=== PATIENT | male | born 1990 | race Caucasian/White ===

== ENCOUNTER 2018-08-27 17:25 | Inpatient (IN) | payer BC ==
[2018-08-27] MEDS ORDERED: Sodium Chloride 0.9% 10 ML Syringe FLUSH PRN (17:41)
[2018-08-27] MEDS ORDERED: Sodium Chloride 0.9% 1,000 ML IV SCH (17:45)
--- NOTE | 2018-08-27 18:33 | EDM.PDOC ---
ED HPI GENERAL MEDICAL PROBLEM - General Chief Complaint: Diabetic Complaint Stated Complaint: DIABETIC - SENT FROM [facility] Time Seen by Provider: 08/27/18 17:34 Source of Information: Reports: Patient, Family, Provider History Limitations: Reports: No Limitations - History of Present Illness INITIAL COMMENTS - FREE TEXT/NARRATIVE: The patient presents from the clinic in [place]. He has not been feeling well for a couple weeks. He had "flu like" symptoms such as nausea and he started vomiting a couple of days ago. He also had increased thirst and urination. He denies fever, chills, cough, congestion or runny nose. He was seen at the clinic and his blood sugar was elevated at 359 and his hemoglobin A1C is elevated at 13.5. He has no history of diabetes for him or his parents. He has never had trouble with his sugars before. He does have some aunts with diabetes. He has some abdominal cramping at times. Onset: Gradual Duration: Week(s): (2) Location: Reports: Abdomen Quality: Reports: Ache Severity: Mild Improves with: Reports: None Worsens with: Reports: None Associated Symptoms: Reports: Nausea/Vomiting. Denies: Chest Pain, Cough, Fever /Chills, Headaches, Shortness of Breath - Related Data Allergies Allergy/AdvReac Type Severity Reaction Status Date / Time No Known Allergies Allergy Verified 08/27/18 17:35 Past Medical History - Past Surgical History HEENT Surgical History: Reports: Adenoidectomy, Oral Surgery Social & Family History - Family History Family Medical History: Noncontributory - Tobacco Use Smoking Status *Q: Never Smoker - Caffeine Use Caffeine Use: Reports: Coffee, Soda - Recreational Drug Use Recreational Drug Use: No ED ROS GENERAL - Review of Systems Review Of Systems: See Below Constitutional: Reports: Malaise, Weakness HEENT: Reports: No Symptoms Respiratory: Reports: No Symptoms Cardiovascular: Reports: No Symptoms Endocrine: Reports: No Symptoms, High Glucose, Polydypsia GI/Abdominal: Reports: Abdominal Pain, Nausea, Vomiting. Denies: Diarrhea : Reports: No Symptoms Musculoskeletal: Reports: No Symptoms ED EXAM GENERAL NO PERIP PULSE - Physical Exam Exam: See Below Exam Limited By: No Limitations General Appearance: Alert, No Apparent Distress Ears: Normal External Exam Nose: Normal Inspection Head: Atraumatic, Normocephalic Neck: Normal Inspection, Supple, Non-Tender Respiratory/Chest: No Respiratory Distress, Lungs Clear, Normal Breath Sounds Cardiovascular: Regular Rate, Rhythm, No Edema, No Murmur GI/Abdominal: Soft, Non-Tender, No Organomegaly, No Mass Extremities: Normal Inspection Course - Vital Signs Last Recorded V/S: Last Vital Signs Temp 97.1 F 08/27/18 17:35 Pulse 108 H 08/27/18 17:35 Resp 24 H 08/27/18 17:35 BP 190/110 H 08/27/18 17:35 Pulse Ox 100 08/27/18 17:35 - Orders/Labs/Meds Orders: Active Orders 24 hr Category Date Time Status Cardiac Monitoring [RC] . DIRECTED Care 08/27/18 17:42 Active Peripheral IV Care [RC] . DIRECTED Care 08/27/18 17:42 Active Lactated Ringers [Ringers, Lactated] 1,000 ml Med 08/27/18 18:46 Active IV .BOLUS Lactated Ringers [Ringers, Lactated] 1,000 ml Med 08/27/18 19:03 Active IV .BOLUS Sodium Chloride 0.9% [Normal Saline] 1,000 ml Med 08/27/18 17:45 Active IV .BOLUS Sodium Chloride 0.9% [Saline Flush] Med 08/27/18 17:41 Active 10 ml FLUSH ASDIRECTED PRN Peripheral IV Insertion Adult [OM.PC] Stat Oth 08/27/18 17:41 Ordered Medication Orders Sodium Chloride (Normal Saline) 1,000 mls @ 1,000 mls/hr IV .BOLUS JOEL Last Admin: 08/27/18 17:51 Dose: 1,000 mls/hr Lactated Ringer's (Ringers, Lactated) 1,000 mls @ 1,000 mls/hr IV .BOLUS ONE Stop: 08/27/18 19:45 Last Admin: 08/27/18 18:55 Dose: 1,000 mls/hr Lactated Ringer's (Ringers, Lactated) 1,000 mls @ 1,000 mls/hr IV .BOLUS ONE Stop: 08/27/18 20:02 Sodium Chloride (Saline Flush) 10 ml FLUSH ASDIRECTED PRN PRN Reason: Keep Vein Open Last Admin: 08/27/18 17:40 Dose: 10 ml Labs: Laboratory Tests 08/27/18 08/27/18 08/27/18 Range/Units 17:40 17:40 17:40 WBC 13.15 H (4.23-9.07) K/mm3 RBC 5.35 (4.63-6.08) M/mm3 Hgb 15.7 (13.7-17.5) gm/L Hct 44.0 (40.1-51.0) % MCV 82.2 (79.0-92.2) fl MCH 29.3 (25.7-32.2) pg MCHC 35.7 H (32.2-35.5) g/dl RDW Std Deviation 38.9 (35.1-43.9) fL Plt Count 402 H (163-337) K/mm3 MPV 10.5 (9.4-12.3) fl Neut % (Auto) 77.3 H (34.0-67.9) % Lymph % (Auto) 16.5 L (21.8-53.1) % Carlisle % (Auto) 5.5 (5.3-12.2) % Eos % (Auto) 0.1 L (0.8-7.0) Baso % (Auto) 0.3 (0.1-1.2) % Neut # (Auto) 10.17 H (1.78-5.38) K/mm3 Lymph # (Auto) 2.17 (1.32-3.57) K/mm3 [place] # (Auto) 0.72 (0.30-0.82) K/mm3 Eos # (Auto) 0.01 L (0.04-0.54) K/mm3 Baso # (Auto) 0.04 (0.01-0.08) K/mm3 Puncture Site ABG pH (7.35-7.45) ABG pCO2 (35.0-45.0) mmHg ABG pO2 (80.0-100.0) mmHg ABG HCO3 (22.0-26.0) meq/L ABG O2 Saturation (96.0-97.0) % ABG Base Excess (-2-2.0) Terrance Test O2 Delivery Device FiO2 (21.00-100.00) % Sodium 129 L (136-145) mEq/L Potassium 3.6 (3.5-5.1) mEq/L Chloride 91 L (98-107) mEq/L Carbon Dioxide (21-32) mEq/L Anion Gap 33.6 H (5-15) BUN 20 H (7-18) mg/dL Creatinine 1.4 H (0.7-1.3) mg/dL Est Cr Clr Drug Dosing 76.00 mL/min Estimated GFR (MDRD) > 60 (>60) mL/min BUN/Creatinine Ratio 14.3 (14-18) Glucose 340 H (74-106) mg/dL POC Glucose (70-105) mg/dL Serum Osmolality 297 (280-300) mosm/kg Calcium 10.1 (8.5-10.1) mg/dL Total Bilirubin 0.6 (0.2-1.0) mg/dL AST 46 H (15-37) U/L ALT 92 H (16-63) U/L Alkaline Phosphatase 96 (46-116) U/L Total Protein 8.7 H (6.4-8.2) g/dl Albumin 4.5 (3.4-5.0) g/dl Globulin 4.2 gm/dL Albumin/Globulin Ratio 1.1 (1-2) Ketones 10.34 (0.0-0.3) mM 08/27/18 08/27/18 Range/Units 18:20 19:05 WBC (4.23-9.07) K/mm3 RBC (4.63-6.08) M/mm3 Hgb (13.7-17.5) gm/L Hct (40.1-51.0) % MCV (79.0-92.2) fl MCH (25.7-32.2) pg MCHC (32.2-35.5) g/dl RDW Std Deviation (35.1-43.9) fL Plt Count (163-337) K/mm3 MPV (9.4-12.3) fl Neut % (Auto) (34.0-67.9) % Lymph % (Auto) (21.8-53.1) % [place] % (Auto) (5.3-12.2) % Eos % (Auto) (0.8-7.0) Baso % (Auto) (0.1-1.2) % Neut # (Auto) (1.78-5.38) K/mm3 Lymph # (Auto) (1.32-3.57) K/mm3 [place] # (Auto) (0.30-0.82) K/mm3 Eos # (Auto) (0.04-0.54) K/mm3 Baso # (Auto) (0.01-0.08) K/mm3 Puncture Site Lt radial ABG pH 7.18 L* (7.35-7.45) ABG pCO2 14.3 L* (35.0-45.0) mmHg ABG pO2 103.0 H (80.0-100.0) mmHg ABG HCO3 5.1 L (22.0-26.0) meq/L ABG O2 Saturation 97.7 H (96.0-97.0) % ABG Base Excess -22.5 L (-2-2.0) Terrance Test Positive O2 Delivery Device Room air FiO2 0.00 L (21.00-100.00) % Sodium (136-145) mEq/L Potassium (3.5-5.1) mEq/L Chloride (98-107) mEq/L Carbon Dioxide (21-32) mEq/L Anion Gap (5-15) BUN (7-18) mg/dL Creatinine (0.7-1.3) mg/dL Est Cr Clr Drug Dosing mL/min Estimated GFR (MDRD) (>60) mL/min BUN/Creatinine Ratio (14-18) Glucose (74-106) mg/dL POC Glucose 333 H (70-105) mg/dL Serum Osmolality (280-300) mosm/kg Calcium (8.5-10.1) mg/dL Total Bilirubin (0.2-1.0) mg/dL AST (15-37) U/L ALT (16-63) U/L Alkaline Phosphatase (46-116) U/L Total Protein (6.4-8.2) g/dl Albumin (3.4-5.0) g/dl Globulin gm/dL Albumin/Globulin Ratio (1-2) Ketones (0.0-0.3) mM Meds: Medications Generic Name Dose Route Start Last Admin Trade Name Freq PRN Reason Stop Dose Admin Sodium Chloride 1,000 mls @ 1,000 mls/hr 08/27/18 17:45 08/27/18 17:51 Normal Saline IV 1,000 mls/hr .BOLUS JOEL Administration Lactated Ringer's 1,000 mls @ 1,000 mls/hr 08/27/18 18:46 08/27/18 18:55 Ringers, Lactated IV 08/27/18 19:45 1,000 mls/hr .BOLUS ONE Administration Lactated Ringer's 1,000 mls @ 1,000 mls/hr 08/27/18 19:03 Ringers, Lactated IV 08/27/18 20:02 .BOLUS ONE Sodium Chloride 10 ml 08/27/18 17:41 08/27/18 17:40 Saline Flush FLUSH 10 ml ASDIRECTED PRN Administration Keep Vein Open - Re-Assessments/Exams Free Text/Narrative Re-Assessment/Exam: 08/27/18 18:36 I ordered an IV NS 1L bolus, labs and a ABG to get pH. 08/27/18 19:15 His WBC was elevated at 13.15. His platelets were elevated at 402. His pH was low at 7.18. He has a low Na of 129. His anion gap is elevated at 33.6. His creatinine was elevated at 1.4. His GFR was normal at > 60. His AST was elevated at 46. Her ALT was elevated at 92. It appears he has new onset Type I diabetes. He is also in DKA. I have ordered another liter of fluid but I switched him to LR. I feel he needs to be admitted. I called Dr Mclean and he agreed to the admission. He wanted another liter of fluid before we start any insulin. Departure - Departure Time of Disposition: 19:30 Disposition: Admitted As Inpatient 66 Condition: Serious Clinical Impression: Hyperglycemia, New onset type 1 diabetes mellitus, uncontrolled Diabetic ketoacidosis Qualifiers: Diabetes mellitus type: type 1 Diabetes mellitus complication detail: without coma Qualified Code(s): E10.10 - Type 1 diabetes mellitus with ketoacidosis without coma - Discharge Information Referrals: Loni Austin [employer] [Primary Care Provider] - Forms: ED Department Discharge - My Orders Last 24 Hours: My Active Orders 08/27/18 17:41 Sodium Chloride 0.9% [Saline Flush] 10 ml FLUSH ASDIRECTED PRN Peripheral IV Insertion Adult [OM.PC] Stat 08/27/18 17:42 Cardiac Monitoring [RC] . DIRECTED Peripheral IV Care [RC] . DIRECTED 08/27/18 17:45 Sodium Chloride 0.9% [Normal Saline] 1,000 ml IV .BOLUS 08/27/18 18:46 Lactated Ringers [Ringers, Lactated] 1,000 ml IV .BOLUS 08/27/18 19:03 Lactated Ringers [Ringers, Lactated] 1,000 ml IV .BOLUS - Assessment/Plan Last 24 Hours: My Active Orders 08/27/18 17:41 Sodium Chloride 0.9% [Saline Flush] 10 ml FLUSH ASDIRECTED PRN Peripheral IV Insertion Adult [OM.PC] Stat 08/27/18 17:42 Cardiac Monitoring [RC] . DIRECTED Peripheral IV Care [RC] . DIRECTED 08/27/18 17:45 Sodium Chloride 0.9% [Normal Saline] 1,000 ml IV .BOLUS 08/27/18 18:46 Lactated Ringers [Ringers, Lactated] 1,000 ml IV .BOLUS 08/27/18 19:03 Lactated Ringers [Ringers, Lactated] 1,000 ml IV .BOLUS
[2018-08-27] MEDS ORDERED: Lactated Ringers 1,000 ML IV ONE ×3 (18:46→21:54)
[2018-08-27] MEDS ORDERED: LORazepam 2 MG/ML SDV IV PRN (21:38)
[2018-08-27] MEDS ORDERED: Albuterol/Ipratropium 3.0-0.5 MG/3 ML Neb Soln NEB PRN (21:38)
[2018-08-27] MEDS ORDERED: Docusate Sodium 100 MG Cap PO PRN (21:38)
[2018-08-27] MEDS ORDERED: Acetaminophen 325 MG Tab PO PRN (21:38)
[2018-08-27] MEDS ORDERED: Temazepam 15 MG Cap PO PRN (21:38)
[2018-08-27] MEDS ORDERED: Acetaminophen/HYDROcodone 325-5 MG Tab PO PRN (21:38)
[2018-08-27] MEDS ORDERED: LORazepam 2 MG/ML SDV IVPUSH PRN (21:38)
[2018-08-27] MEDS ORDERED: Metoprolol Tartrate 5 MG/5 ML SDV IVPUSH PRN (21:38)
[2018-08-27] MEDS ORDERED: HYDROmorphone 1 MG/ML Syringe IVPUSH PRN (21:38)
[2018-08-27] MEDS ORDERED: Promethazine 6.25 MG in Sodium Chloride 0.9% 50 ML IV PRN (21:38)
[2018-08-27] MEDS ORDERED: Bisacodyl 5 MG Tab PO PRN (21:38)
[2018-08-27] MEDS ORDERED: Polyethylene Glycol 3350 Powder 17 GM Packet PO PRN (21:38)
[2018-08-27] MEDS ORDERED: Ondansetron 4 MG/2 ML SDV IV PRN (21:38)
[2018-08-27] MEDS ORDERED: Potassium Chloride 20 MEQ Tab.ER PO ONE (21:46)
[2018-08-27] MEDS: Potassium Chloride 20 MEQ Tab.ER PO SCH (22:10)
--- NOTE | 2018-08-27 22:11 | PCM.HP ---
H&P History of Present Illness - General Date of Service: 08/27/18 Admit Problem/Dx: Admission Diagnosis/Problem Admission Diagnosis/Problem Diabetic ketoacidosis Source of Information: Patient, Family, Provider, RN Notes Reviewed History Limitations: Reports: No Limitations - History of Present Illness Initial Comments - Free Text/Narative: This is a 28 yo young white male with no significant past medical hx/o who was initially seen in [facility] [place] "flu-like" symptoms that have been going on for a couple of weeks now. Her c/o is associated with increased fluid intake, urination, abdominal pain, nausea and vomiting. She was subsequently diagnosed with new onset of diabetes with a BS of 359 and an A1C level of 13.5. His initial work up in ED shows a CBC remarkable for WBC of 13.15, MCHC of 35.7 , Platelet of 402, Neutrophils of 77.3%, Lymphocytes of 16.5% and Eosinophils of 0.1%. His ABG shows a pH of 7.18, pCO2 of 14.3, PO2 of 103, HCO3 of 5.1, O2 Sat of 97.7, on RA. His chemistry is significant for Na of 129, Cl of 91, AG of 33.6, BUN of 20, Cr of 1.4, BS of 340, AST of 46, ALT of 92 and Total Protein of 8.7. His ketones level is 10.34. Patient is being admitted for medical treatment of DKA. - Related Data Allergies/Adverse Reactions: Allergies Allergy/AdvReac Type Severity Reaction Status Date / Time No Known Allergies Allergy Verified 08/27/18 17:35 Home Medications: Home Meds Cholecalciferol (Vitamin D3) [Vitamin D3] 5,000 unit PO BEDTIME #30 tablet 08/29 [Rx] Insulin Glarg,Human.Rec.Analog [Lantus] 25 unit SQ BID #1 unit 08/29/18 [Rx] Insulin Lispro [Humalog] See Protocol SUBCUT QIDACANDBED PRN #1 ml 08/29/18 [Rx] Lisinopril 10 mg PO DAILY #30 tablet 08/29/18 [Rx] Past Medical History - Past Surgical History HEENT Surgical History: Reports: Adenoidectomy, Oral Surgery Social & Family History - Family History Family Medical History: Noncontributory - Tobacco Use Smoking Status *Q: Never Smoker - Caffeine Use Caffeine Use: Reports: Coffee, Soda - Recreational Drug Use Recreational Drug Use: No H&P Review of Systems - Review of Systems: Review Of Systems: See Below General: Reports: Malaise, Weakness, Fatigue, Other (increased thirst). Denies : Fever, Chills HEENT: Reports: No Symptoms Pulmonary: Denies: Shortness of Breath Cardiovascular: Denies: Chest Pain, Dyspnea on Exertion, Edema, Lightheadedness Gastrointestinal: Reports: Abdominal Pain, Nausea Genitourinary: Reports: Frequency Musculoskeletal: Reports: No Symptoms Skin: Denies: Jaundice, Pallor, Rash, Erythema Psychiatric: Denies: Depression, Anxiety, Agitation, Hallucinations, Suicidal Ideation Neurological: Denies: Confusion, Dizziness, Headache, Seizure, Syncope, Tremors , Difficulty Walking, Weakness, Gait Disturbance Hematologic/Lymphatic: Reports: No Symptoms Immunologic: Reports: No Symptoms Exam - Exam Exam: See Below - Vital Signs Vital Signs: Last Vital Signs Temp 37.6 C 08/27/18 20:22 Pulse 90 08/27/18 20:22 Resp 16 08/27/18 20:22 BP 165/87 H 08/27/18 20:22 Pulse Ox 99 08/27/18 20:22 Weight: 98.475 kg - Exam General: Alert, Oriented, Cooperative, Other (Obese) HEENT: Conjunctiva Clear, EACs Clear, EOMI, Hearing Intact, Mucosa Moist & [place] , Nares Patent, Normal Nasal Septum, Posterior Pharynx Clear, Pupils Equal, Pupils Reactive Neck: Supple, Trachea Midline Lungs: Clear to Auscultation, Normal Respiratory Effort Cardiovascular: Regular Rhythm, Tachycardia GI/Abdominal Exam: Normal Bowel Sounds, Soft, Non-Tender, No Organomegaly, No Distention, No Abnormal Bruit, No Mass (Male) Exam: Deferred Rectal (Males) Exam: Deferred Back Exam: Normal Inspection, Full Range of Motion Extremities: Normal Inspection, Normal Range of Motion, Non-Tender, No Pedal Edema, Normal Capillary Refill Peripheral Pulses: 3+: Posterior Tibial (L), Posterior Tibial (R), Dorsalis Pedis (L), Dorsalis Pedis (R) Skin: Warm, Intact Neuro Extensive - Mental Status: Oriented x3, Normal Cognition, Memory Intact Neuro Extensive - Motor, Sensory, Reflexes: CN II-XII Intact, Normal Gait Psychiatric: Alert, Normal Affect, Normal Mood - Patient Data Lab Results Last 24 hrs: Laboratory Results - last 24 hr 08/27/18 08/27/18 08/27/18 Range/Units 17:40 17:40 17:40 WBC 13.15 H (4.23-9.07) K/mm3 RBC 5.35 (4.63-6.08) M/mm3 Hgb 15.7 (13.7-17.5) gm/L Hct 44.0 (40.1-51.0) % MCV 82.2 (79.0-92.2) fl MCH 29.3 (25.7-32.2) pg MCHC 35.7 H (32.2-35.5) g/dl RDW Std Deviation 38.9 (35.1-43.9) fL Plt Count 402 H (163-337) K/mm3 MPV 10.5 (9.4-12.3) fl Neut % (Auto) 77.3 H (34.0-67.9) % Lymph % (Auto) 16.5 L (21.8-53.1) % [place] % (Auto) 5.5 (5.3-12.2) % Eos % (Auto) 0.1 L (0.8-7.0) Baso % (Auto) 0.3 (0.1-1.2) % Neut # (Auto) 10.17 H (1.78-5.38) K/mm3 Lymph # (Auto) 2.17 (1.32-3.57) K/mm3 [place] # (Auto) 0.72 (0.30-0.82) K/mm3 Eos # (Auto) 0.01 L (0.04-0.54) K/mm3 Baso # (Auto) 0.04 (0.01-0.08) K/mm3 Puncture Site ABG pH (7.35-7.45) ABG pCO2 (35.0-45.0) mmHg ABG pO2 (80.0-100.0) mmHg ABG HCO3 (22.0-26.0) meq/L ABG O2 Saturation (96.0-97.0) % ABG Base Excess (-2-2.0) Terrance Test O2 Delivery Device FiO2 (21.00-100.00) % Sodium 129 L (136-145) mEq/L Potassium 3.6 (3.5-5.1) mEq/L Chloride 91 L (98-107) mEq/L Carbon Dioxide (21-32) mEq/L Anion Gap 33.6 H (5-15) BUN 20 H (7-18) mg/dL Creatinine 1.4 H (0.7-1.3) mg/dL Est Cr Clr Drug Dosing 76.00 mL/min Estimated GFR (MDRD) > 60 (>60) mL/min BUN/Creatinine Ratio 14.3 (14-18) Glucose 340 H (74-106) mg/dL POC Glucose (70-105) mg/dL Serum Osmolality 297 (280-300) mosm/kg Calcium 10.1 (8.5-10.1) mg/dL Total Bilirubin 0.6 (0.2-1.0) mg/dL AST 46 H (15-37) U/L ALT 92 H (16-63) U/L Alkaline Phosphatase 96 (46-116) U/L Total Protein 8.7 H (6.4-8.2) g/dl Albumin 4.5 (3.4-5.0) g/dl Globulin 4.2 gm/dL Albumin/Globulin Ratio 1.1 (1-2) Ketones 10.34 (0.0-0.3) mM 08/27/18 08/27/18 08/27/18 Range/Units 18:20 19:05 20:02 WBC (4.23-9.07) K/mm3 RBC (4.63-6.08) M/mm3 Hgb (13.7-17.5) gm/L Hct (40.1-51.0) % MCV (79.0-92.2) fl MCH (25.7-32.2) pg MCHC (32.2-35.5) g/dl RDW Std Deviation (35.1-43.9) fL Plt Count (163-337) K/mm3 MPV (9.4-12.3) fl Neut % (Auto) (34.0-67.9) % Lymph % (Auto) (21.8-53.1) % [place] % (Auto) (5.3-12.2) % Eos % (Auto) (0.8-7.0) Baso % (Auto) (0.1-1.2) % Neut # (Auto) (1.78-5.38) K/mm3 Lymph # (Auto) (1.32-3.57) K/mm3 [place] # (Auto) (0.30-0.82) K/mm3 Eos # (Auto) (0.04-0.54) K/mm3 Baso # (Auto) (0.01-0.08) K/mm3 Puncture Site Lt radial ABG pH 7.18 L* (7.35-7.45) ABG pCO2 14.3 L* (35.0-45.0) mmHg ABG pO2 103.0 H (80.0-100.0) mmHg ABG HCO3 5.1 L (22.0-26.0) meq/L ABG O2 Saturation 97.7 H (96.0-97.0) % ABG Base Excess -22.5 L (-2-2.0) Terrance Test Positive O2 Delivery Device Room air FiO2 0.00 L (21.00-100.00) % Sodium (136-145) mEq/L Potassium (3.5-5.1) mEq/L Chloride (98-107) mEq/L Carbon Dioxide (21-32) mEq/L Anion Gap (5-15) BUN (7-18) mg/dL Creatinine (0.7-1.3) mg/dL Est Cr Clr Drug Dosing mL/min Estimated GFR (MDRD) (>60) mL/min BUN/Creatinine Ratio (14-18) Glucose (74-106) mg/dL POC Glucose 333 H 323 H (70-105) mg/dL Serum Osmolality (280-300) mosm/kg Calcium (8.5-10.1) mg/dL Total Bilirubin (0.2-1.0) mg/dL AST (15-37) U/L ALT (16-63) U/L Alkaline Phosphatase (46-116) U/L Total Protein (6.4-8.2) g/dl Albumin (3.4-5.0) g/dl Globulin gm/dL Albumin/Globulin Ratio (1-2) Ketones (0.0-0.3) mM 08/27/18 Range/Units 21:50 WBC (4.23-9.07) K/mm3 RBC (4.63-6.08) M/mm3 Hgb (13.7-17.5) gm/L Hct (40.1-51.0) % MCV (79.0-92.2) fl MCH (25.7-32.2) pg MCHC (32.2-35.5) g/dl RDW Std Deviation (35.1-43.9) fL Plt Count (163-337) K/mm3 MPV (9.4-12.3) fl Neut % (Auto) (34.0-67.9) % Lymph % (Auto) (21.8-53.1) % [place] % (Auto) (5.3-12.2) % Eos % (Auto) (0.8-7.0) Baso % (Auto) (0.1-1.2) % Neut # (Auto) (1.78-5.38) K/mm3 Lymph # (Auto) (1.32-3.57) K/mm3 [place] # (Auto) (0.30-0.82) K/mm3 Eos # (Auto) (0.04-0.54) K/mm3 Baso # (Auto) (0.01-0.08) K/mm3 Puncture Site ABG pH (7.35-7.45) ABG pCO2 (35.0-45.0) mmHg ABG pO2 (80.0-100.0) mmHg ABG HCO3 (22.0-26.0) meq/L ABG O2 Saturation (96.0-97.0) % ABG Base Excess (-2-2.0) Terrance Test O2 Delivery Device FiO2 (21.00-100.00) % Sodium (136-145) mEq/L Potassium (3.5-5.1) mEq/L Chloride (98-107) mEq/L Carbon Dioxide (21-32) mEq/L Anion Gap (5-15) BUN (7-18) mg/dL Creatinine (0.7-1.3) mg/dL Est Cr Clr Drug Dosing mL/min Estimated GFR (MDRD) (>60) mL/min BUN/Creatinine Ratio (14-18) Glucose (74-106) mg/dL POC Glucose 276 H (70-105) mg/dL Serum Osmolality (280-300) mosm/kg Calcium (8.5-10.1) mg/dL Total Bilirubin (0.2-1.0) mg/dL AST (15-37) U/L ALT (16-63) U/L Alkaline Phosphatase (46-116) U/L Total Protein (6.4-8.2) g/dl Albumin (3.4-5.0) g/dl Globulin gm/dL Albumin/Globulin Ratio (1-2) Ketones (0.0-0.3) mM Result Diagrams: 08/27/18 17:40 08/29/18 08:00 Problem List Initiated/Reviewed/Updated: Yes Orders Last 24hrs: Active Orders 24 hr Category Date Time Status Patient Status [ADT] Routine ADT 08/27/18 19:49 Active Antiembolic Devices [RC] QSHIFT Care 08/27/18 21:40 Active Cardiac Monitoring [RC] CONTINUOUS Care 08/27/18 21:39 Active Height and Weight [RC] DAILY Care 08/27/18 21:38 Active Intake and Output [RC] 04,16 Care 08/27/18 21:39 Active Oxygen Therapy [RC] PRN Care 08/27/18 21:38 Active Peripheral IV Care [RC] Q2HR Care 08/27/18 17:42 Active RT Aerosol Therapy [RC] ASDIRECTED Care 08/27/18 21:42 Active Up ad Lili [RC] ASDIRECTED Care 08/27/18 21:38 Active VTE/DVT Education [RC] 09,21 Care 08/27/18 21:38 Active Vital Signs [RC] Q4HR Care 08/27/18 21:38 Active Consult to Case Management/Geotechnical Operating Engineer [CONS] Cons 08/27/18 21:38 Active Routine Consult to Diabetic Nurse Specialist [CONS] Routine Cons 08/27/18 21:38 Active Consult to Assistant Director Of Nursing [CONS] Routine Cons 08/27/18 21:38 Active Consistent Carbohydrate Diet [DIET] Diet 08/27/18 Breakfast Active Nothing per Oral Now Diet [DIET] Diet 08/27/18 Dinner Active A1C [GLYCOSYLATED HEMOGLOBIN,HGBA1C] [CHEM] AM Lab 08/28/18 05:11 Ordered BASIC METABOLIC PANEL,BMP [CHEM] Q4H Lab 08/27/18 21:42 Ordered BASIC METABOLIC PANEL,BMP [CHEM] Q4H Lab 08/28/18 01:42 Ordered BASIC METABOLIC PANEL,BMP [CHEM] Q4H Lab 08/28/18 05:42 Ordered BASIC METABOLIC PANEL,BMP [CHEM] Q4H Lab 08/28/18 09:42 Ordered BASIC METABOLIC PANEL,BMP [CHEM] Q4H Lab 08/28/18 13:42 Ordered BASIC METABOLIC PANEL,BMP [CHEM] Q4H Lab 08/28/18 17:42 Ordered LIPID PANEL [CHEM] AM Lab 08/28/18 05:11 Ordered MAGNESIUM [CHEM] AM Lab 08/28/18 05:11 Ordered MAGNESIUM [CHEM] AM Lab 08/29/18 05:11 Ordered MAGNESIUM [CHEM] AM Lab 08/30/18 05:11 Ordered MAGNESIUM [CHEM] AM Lab 08/31/18 05:11 Ordered MAGNESIUM [CHEM] AM Lab 09/01/18 05:11 Ordered MICROALBUMIN/CREAT RATIO,URINE [URCHEM] Routine Lab 08/27/18 22:10 Ordered T4 FREE [CHEM] AM Lab 08/28/18 05:11 Ordered TSH [CHEM] AM Lab 08/28/18 05:11 Ordered Acetaminophen [Tylenol] Med 08/27/18 21:38 Ordered 650 mg PO Q4H PRN Acetaminophen/HYDROcodone [[place] 325-5 MG] Med 08/27/18 21:38 Ordered 1 tab PO Q4H PRN Albuterol/Ipratropium [DuoNeb 3.0-0.5 MG/3 ML] Med 08/27/18 21:38 Ordered 3 ml NEB Q4H PRN Bisacodyl [Dulcolax] Med 08/27/18 21:38 Ordered 5 mg PO DAILY PRN Docusate Sodium [Colace] Med 08/27/18 21:38 Ordered 100 mg PO BID PRN Docusate Sodium/Sennosides [Senna Plus] Med 08/27/18 21:38 Ordered 1 tab PO BID PRN HYDROmorphone [Dilaudid] Med 08/27/18 21:38 Ordered 0.25 mg IVPUSH Q2H PRN Insulin Regular, Human [HumuLIN R] 100 unit Med 08/27/18 21:45 Ordered Sodium Chloride 0.9% [Normal Saline] 99 ml IV TITRATE LORazepam [Ativan] Med 08/27/18 21:38 Ordered 1 mg IV Q6H PRN LORazepam [Ativan] Med 08/27/18 21:38 Active 2 mg IVPUSH Q4H PRN Lactated Ringers [Ringers, Lactated] 1,000 ml Med 08/27/18 21:54 Active IV BOLUS Metoprolol Tartrate [Lopressor] Med 08/27/18 21:38 Active 5 mg IVPUSH Q4H PRN Ondansetron [Zofran] Med 08/27/18 21:38 Ordered 4 mg IV Q6H PRN Pharmacy to Dose - Magnesium R [Pharmacy to Dose - Med 08/27/18 21:45 Pending Magnesium Replacement] 1 dose .XX ASDIRECTED Pharmacy to Dose - Potassium R [Pharmacy to Dose - Med 08/27/18 21:45 Pending Potassium Replacement] 1 dose .XX ASDIRECTED Polyethylene Glycol 3350 [MiraLAX] Med 08/27/18 21:38 Ordered 17 gm PO DAILY PRN Potassium Chloride [Klor-Con M20] Med 08/27/18 21:45 Active 40 meq PO Q4H Promethazine [Phenergan] 6.25 mg Med 08/27/18 21:38 Ordered Sodium Chloride 0.9% [Normal Saline] 50 ml IV Q6H Sodium Chloride 0.9% [Normal Saline] 1,000 ml Med 08/27/18 17:45 Active IV .BOLUS Sodium Chloride 0.9% [Saline Flush] Med 08/27/18 17:41 Active 10 ml FLUSH ASDIRECTED PRN Temazepam [Restoril] Med 08/27/18 21:38 Ordered 15 mg PO BEDTIME PRN hydrALAZINE [Apresoline] Med 08/27/18 21:38 Active 20 mg IVPUSH Q4H PRN Peripheral IV Insertion Adult [OM.PC] Stat Oth 08/27/18 17:41 Ordered Sequential Compression Device [OM.PC] Per Unit Routine Oth 08/27/18 21:39 Ordered Resuscitation Status Routine Resus Stat 08/27/18 21:38 Ordered Medication Orders Acetaminophen (Tylenol) 650 mg PO Q4H PRN PRN Reason: Pain (Mild 1-3)/fever Hydrocodone Bitart/Acetaminophen ([place] 325-5 Mg) 1 tab PO Q4H PRN PRN Reason: Pain (moderate 4-6) Albuterol/Ipratropium (Duoneb 3.0-0.5 Mg/3 Ml) 3 ml NEB Q4H PRN PRN Reason: Shortness Of Breath/wheezing Bisacodyl (Dulcolax) 5 mg PO DAILY PRN PRN Reason: Constipation Docusate Sodium (Colace) 100 mg PO BID PRN PRN Reason: Constipation Hydralazine HCl (Apresoline) 20 mg IVPUSH Q4H PRN PRN Reason: Hypertension Hydromorphone HCl (Dilaudid) 0.25 mg IVPUSH Q2H PRN PRN Reason: Pain (severe 7-10) Sodium Chloride (Normal Saline) 1,000 mls @ 1,000 mls/hr IV .BOLUS JOEL Last Admin: 08/27/18 17:51 Dose: 1,000 mls/hr Promethazine HCl 6.25 mg/ (Sodium Chloride) 50.25 mls @ 100 mls/hr IV Q6H PRN PRN Reason: Nausea/Vomiting Insulin Human Regular 100 unit (/ Sodium Chloride) 100 mls @ 787.8 mls/hr IV TITRATE JOEL; Protocol Lactated Ringer's (Ringers, Lactated) 1,000 mls @ 999 mls/hr IV BOLUS ONE Stop: 08/27/18 22:54 Lorazepam (Ativan) 2 mg IVPUSH Q4H PRN PRN Reason: Seizures Lorazepam (Ativan) 1 mg IV Q6H PRN PRN Reason: Anxiety Magnesium Sulfate (Pharmacy To Dose - Magnesium Replacement) 1 dose .XX ASDIRECTED [facility] Metoprolol Tartrate (Lopressor) 5 mg IVPUSH Q4H PRN PRN Reason: Tachycardia Ondansetron HCl (Zofran) 4 mg IV Q6H PRN PRN Reason: Nausea/Vomiting Polyethylene Glycol (Miralax) 17 gm PO DAILY PRN PRN Reason: Constipation Potassium Chloride (Pharmacy To Dose - Potassium Replacement) 1 dose .XX ASDIRECTED [facility] Potassium Chloride (Klor-Con M20) 40 meq PO Q4H JOEL Stop: 08/28/18 01:46 Senna/Docusate Sodium (Senna Plus) 1 tab PO BID PRN PRN Reason: Constipation Sodium Chloride (Saline Flush) 10 ml FLUSH ASDIRECTED PRN PRN Reason: Keep Vein Open Last Admin: 08/27/18 17:40 Dose: 10 ml Temazepam (Restoril) 15 mg PO BEDTIME PRN PRN Reason: Sleep Assessment/Plan Comment:: Assessment/Plan: Acute: Diabetic Ketoacidosis - Ketones 10.34 and BS in the 300s - He carries no hx/o diabetes - Reports polydipsia and polyuria - DKA Protocol (my own) w/ Aggressive IV hydration (so for he had gotten 1L NS and just completed 2L of LR) - Continue LR for volume resuscitation - NPO until AG resolves - Diabetic Education and Dietary Consult New Onset of Diabetes - 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 - Obese and now in his late 20s - Likely need to confirm with: GADA, ICA, ZnT8 and IA-2 - BS in the 300s; A1C ordered - Parents non diabetic but aunties on mother's side - Insulin regimen (LA and SA) Class I Obese - BMI 33 - Advised LSM - Dietary consult for weight management Plan: Admit to ICU Insulin drip once he achieve adequate volume resuscitation Serial BMP Q4H until AG resolves Routine AM labs Monitor E-lytes Abnormality A1C, Thyroid Panel, Vit D level, Lipid Panel and Urine Microalbumin in am SW/CM for d/c planning Additional orders as above Code status:1 With patient's permission, met up with parents at bedside and updated them about his diagnosis, lab results and treatment plan.
[2018-08-27] MEDS ORDERED: Insulin Regular, Human 100 Units/ML 3 ML Vial IV SCH ×3 (23:00→23:15)
[2018-08-28] MEDS ORDERED: Dextrose 5% in Water 1,000 ML IV SCH (00:30)
[2018-08-28] MEDS: hydrALAZINE 20 MG/ML SDV IVPUSH PRN ×2 (00:40→06:43)
[2018-08-28] MEDS: Dextrose 5%-0.9% NaCl 1,000 ML IV SCH ×4 (00:40→20:47)
[2018-08-28] MEDS: Potassium Chloride 20 MEQ Tab.ER PO SCH (00:46)
[2018-08-28 08:28] LABS: HEMOGLOBIN A1C 11.3 % (4.50-6.20)
[2018-08-28] MEDS ORDERED: Lisinopril 5 MG Tab PO ONE (09:28)
[2018-08-28] MEDS ORDERED: Magnesium Sulfate/Water 2 GM in Premix Bag 1 BAG IV ONE (10:00)
[2018-08-28] MEDS ORDERED: Potassium Chloride 20 MEQ Tab.ER PO ONE ×3 (10:00→22:01)
[2018-08-28] MEDS: Cholecalciferol (Vitamin D3) 5,000 UNIT Tab PO SCH (20:11)
--- NOTE | 2018-08-28 22:02 | PCM.PN ---
- General Info Date of Service: 08/28/18 Admission Dx/Problem (Free Text): Admission Diagnosis/Problem Admission Diagnosis/Problem Diabetic ketoacidosis Subjective Update: Follow Up Functional Status: Reports: Pain Controlled, Ambulating, Urinating. Denies: New Symptoms - Review of Systems General: Denies: Fever, Weakness, Fatigue, Malaise, Chills HEENT: Reports: No Symptoms Pulmonary: Denies: Shortness of Breath Cardiovascular: Denies: Chest Pain, Dyspnea on Exertion, Edema, Lightheadedness Gastrointestinal: Denies: Abdominal Pain, Constipation, Decreased Appetite, Diarrhea, Nausea, Vomiting Genitourinary: Reports: No Symptoms Musculoskeletal: Reports: No Symptoms Skin: Reports: No Symptoms Neurological: Denies: Confusion, Weakness, Gait Disturbance Psychiatric: Denies: Depression, Anxiety, Agitation Systems Review Comment:: No overnight or acute issues. He rested well. So far his AG is now at 28. He has no complaints. - Patient Data Vitals - Most Recent: Last Vital Signs Temp 36.6 C 08/28/18 20:00 Pulse 85 08/28/18 15:59 Resp 18 08/28/18 20:00 BP 125/69 08/28/18 20:00 Pulse Ox 99 08/28/18 20:00 Weight - Most Recent: 98.475 kg I&O - Last 24 Hours: Intake & Output 08/28/18 08/28/18 08/28/18 06:59 14:59 22:59 Intake Total 1417 2024 Output Total 1000 650 300 Balance 417 -650 1724 Lab Results Last 24 Hours: Laboratory Results - last 24 hr 08/27/18 08/28/18 08/28/18 Range/Units 22:27 00:18 00:27 Sodium 133 L (136-145) mEq/L Potassium 3.1 L (3.5-5.1) mEq/L Chloride 98 (98-107) mEq/L Carbon Dioxide 10 L (21-32) mEq/L Anion Gap 28.1 H (5-15) BUN 17 (7-18) mg/dL Creatinine 1.3 (0.7-1.3) mg/dL Est Cr Clr Drug Dosing 81.85 mL/min Estimated GFR (MDRD) > 60 (>60) mL/min BUN/Creatinine Ratio 13.1 L (14-18) Glucose 255 H (74-106) mg/dL POC Glucose 250 H (70-105) mg/dL Hemoglobin A1c (4.50-6.20) % Calcium 8.8 (8.5-10.1) mg/dL Magnesium (1.8-2.4) mg/dl Triglycerides (<150) mg/dL Cholesterol (<200) mg/dL LDL Cholesterol Direct (<100) mg/dL HDL Cholesterol (40-59) mg/dL Vitamin D 25-Hydroxy (30.0-100.0) ng/ml Free T4 (0.76-1.46) ng/dL TSH 3rd Generation (0.358-3.74) uIU/mL Ur Random Creatinine 28.5 L (30.0-125.0) mg/dL Ur Random Microalbumin 313.7 H (1.3-20.0) mg/L Microalb/Creat Ratio 1100.7 H (0-30) mg/g 08/28/18 08/28/18 08/28/18 Range/Units 01:20 01:28 02:33 Sodium 134 L (136-145) mEq/L Potassium 2.9 L (3.5-5.1) mEq/L Chloride 99 (98-107) mEq/L Carbon Dioxide 9 L (21-32) mEq/L Anion Gap 28.9 H (5-15) BUN 17 (7-18) mg/dL Creatinine 1.3 (0.7-1.3) mg/dL Est Cr Clr Drug Dosing 81.85 mL/min Estimated GFR (MDRD) > 60 (>60) mL/min BUN/Creatinine Ratio 13.1 L (14-18) Glucose 212 H (74-106) mg/dL POC Glucose 227 H 237 H (70-105) mg/dL Hemoglobin A1c (4.50-6.20) % Calcium 9.3 (8.5-10.1) mg/dL Magnesium (1.8-2.4) mg/dl Triglycerides (<150) mg/dL Cholesterol (<200) mg/dL LDL Cholesterol Direct (<100) mg/dL HDL Cholesterol (40-59) mg/dL Vitamin D 25-Hydroxy (30.0-100.0) ng/ml Free T4 (0.76-1.46) ng/dL TSH 3rd Generation (0.358-3.74) uIU/mL Ur Random Creatinine (30.0-125.0) mg/dL Ur Random Microalbumin (1.3-20.0) mg/L Microalb/Creat Ratio (0-30) mg/g 08/28/18 08/28/18 08/28/18 Range/Units 03:37 04:45 05:43 Sodium (136-145) mEq/L Potassium (3.5-5.1) mEq/L Chloride (98-107) mEq/L Carbon Dioxide (21-32) mEq/L Anion Gap (5-15) BUN (7-18) mg/dL Creatinine (0.7-1.3) mg/dL Est Cr Clr Drug Dosing mL/min Estimated GFR (MDRD) (>60) mL/min BUN/Creatinine Ratio (14-18) Glucose (74-106) mg/dL POC Glucose 277 H 272 H (70-105) mg/dL Hemoglobin A1c (4.50-6.20) % Calcium (8.5-10.1) mg/dL Magnesium 1.6 L (1.8-2.4) mg/dl Triglycerides 114 (<150) mg/dL Cholesterol 135 (<200) mg/dL LDL Cholesterol Direct 92 (<100) mg/dL HDL Cholesterol 32.0 L (40-59) mg/dL Vitamin D 25-Hydroxy 18.0 L (30.0-100.0) ng/ml Free T4 0.92 (0.76-1.46) ng/dL TSH 3rd Generation 1.988 (0.358-3.74) uIU/mL Ur Random Creatinine (30.0-125.0) mg/dL Ur Random Microalbumin (1.3-20.0) mg/L Microalb/Creat Ratio (0-30) mg/g 08/28/18 08/28/18 08/28/18 Range/Units 05:43 05:43 05:50 Sodium 134 L (136-145) mEq/L Potassium 3.2 L (3.5-5.1) mEq/L Chloride 101 (98-107) mEq/L Carbon Dioxide 9 L (21-32) mEq/L Anion Gap 27.2 H (5-15) BUN 17 (7-18) mg/dL Creatinine 1.2 (0.7-1.3) mg/dL Est Cr Clr Drug Dosing 88.67 mL/min Estimated GFR (MDRD) > 60 (>60) mL/min BUN/Creatinine Ratio 14.2 (14-18) Glucose 278 H (74-106) mg/dL POC Glucose 265 H (70-105) mg/dL Hemoglobin A1c 11.30 H (4.50-6.20) % Calcium 8.8 (8.5-10.1) mg/dL Magnesium (1.8-2.4) mg/dl Triglycerides (<150) mg/dL Cholesterol (<200) mg/dL LDL Cholesterol Direct (<100) mg/dL HDL Cholesterol (40-59) mg/dL Vitamin D 25-Hydroxy (30.0-100.0) ng/ml Free T4 (0.76-1.46) ng/dL TSH 3rd Generation (0.358-3.74) uIU/mL Ur Random Creatinine (30.0-125.0) mg/dL Ur Random Microalbumin (1.3-20.0) mg/L Microalb/Creat Ratio (0-30) mg/g 08/28/18 08/28/18 08/28/18 Range/Units 06:42 07:44 08:58 Sodium (136-145) mEq/L Potassium (3.5-5.1) mEq/L Chloride (98-107) mEq/L Carbon Dioxide (21-32) mEq/L Anion Gap (5-15) BUN (7-18) mg/dL Creatinine (0.7-1.3) mg/dL Est Cr Clr Drug Dosing mL/min Estimated GFR (MDRD) (>60) mL/min BUN/Creatinine Ratio (14-18) Glucose (74-106) mg/dL POC Glucose 287 H 243 H 242 H (70-105) mg/dL Hemoglobin A1c (4.50-6.20) % Calcium (8.5-10.1) mg/dL Magnesium (1.8-2.4) mg/dl Triglycerides (<150) mg/dL Cholesterol (<200) mg/dL LDL Cholesterol Direct (<100) mg/dL HDL Cholesterol (40-59) mg/dL Vitamin D 25-Hydroxy (30.0-100.0) ng/ml Free T4 (0.76-1.46) ng/dL TSH 3rd Generation (0.358-3.74) uIU/mL Ur Random Creatinine (30.0-125.0) mg/dL Ur Random Microalbumin (1.3-20.0) mg/L Microalb/Creat Ratio (0-30) mg/g 08/28/18 08/28/18 08/28/18 Range/Units 09:53 10:04 12:13 Sodium 136 (136-145) mEq/L Potassium 3.0 L (3.5-5.1) mEq/L Chloride 103 (98-107) mEq/L Carbon Dioxide 11 L (21-32) mEq/L Anion Gap 25.0 H (5-15) BUN 17 (7-18) mg/dL Creatinine 1.3 (0.7-1.3) mg/dL Est Cr Clr Drug Dosing 81.85 mL/min Estimated GFR (MDRD) > 60 (>60) mL/min BUN/Creatinine Ratio 13.1 L (14-18) Glucose 225 H (74-106) mg/dL POC Glucose 213 H 161 H (70-105) mg/dL Hemoglobin A1c (4.50-6.20) % Calcium 9.5 (8.5-10.1) mg/dL Magnesium (1.8-2.4) mg/dl Triglycerides (<150) mg/dL Cholesterol (<200) mg/dL LDL Cholesterol Direct (<100) mg/dL HDL Cholesterol (40-59) mg/dL Vitamin D 25-Hydroxy (30.0-100.0) ng/ml Free T4 (0.76-1.46) ng/dL TSH 3rd Generation (0.358-3.74) uIU/mL Ur Random Creatinine (30.0-125.0) mg/dL Ur Random Microalbumin (1.3-20.0) mg/L Microalb/Creat Ratio (0-30) mg/g 08/28/18 08/28/18 08/28/18 Range/Units 13:37 13:50 14:50 Sodium 136 (136-145) mEq/L Potassium 3.1 L (3.5-5.1) mEq/L Chloride 104 (98-107) mEq/L Carbon Dioxide 16 L (21-32) mEq/L Anion Gap 19.1 H (5-15) BUN 15 (7-18) mg/dL Creatinine 1.1 (0.7-1.3) mg/dL Est Cr Clr Drug Dosing 97.09 mL/min Estimated GFR (MDRD) > 60 (>60) mL/min BUN/Creatinine Ratio 13.6 L (14-18) Glucose 178 H (74-106) mg/dL POC Glucose 180 H 173 H (70-105) mg/dL Hemoglobin A1c (4.50-6.20) % Calcium 8.9 (8.5-10.1) mg/dL Magnesium (1.8-2.4) mg/dl Triglycerides (<150) mg/dL Cholesterol (<200) mg/dL LDL Cholesterol Direct (<100) mg/dL HDL Cholesterol (40-59) mg/dL Vitamin D 25-Hydroxy (30.0-100.0) ng/ml Free T4 (0.76-1.46) ng/dL TSH 3rd Generation (0.358-3.74) uIU/mL Ur Random Creatinine (30.0-125.0) mg/dL Ur Random Microalbumin (1.3-20.0) mg/L Microalb/Creat Ratio (0-30) mg/g 08/28/18 08/28/18 08/28/18 Range/Units 15:56 17:11 17:45 Sodium 139 (136-145) mEq/L Potassium 2.6 L (3.5-5.1) mEq/L Chloride 107 (98-107) mEq/L Carbon Dioxide 16 L (21-32) mEq/L Anion Gap 18.6 H (5-15) BUN 13 (7-18) mg/dL Creatinine 1.1 (0.7-1.3) mg/dL Est Cr Clr Drug Dosing 97.09 mL/min Estimated GFR (MDRD) > 60 (>60) mL/min BUN/Creatinine Ratio 11.8 L (14-18) Glucose 141 H (74-106) mg/dL POC Glucose 170 H 161 H (70-105) mg/dL Hemoglobin A1c (4.50-6.20) % Calcium 8.7 (8.5-10.1) mg/dL Magnesium (1.8-2.4) mg/dl Triglycerides (<150) mg/dL Cholesterol (<200) mg/dL LDL Cholesterol Direct (<100) mg/dL HDL Cholesterol (40-59) mg/dL Vitamin D 25-Hydroxy (30.0-100.0) ng/ml Free T4 (0.76-1.46) ng/dL TSH 3rd Generation (0.358-3.74) uIU/mL Ur Random Creatinine (30.0-125.0) mg/dL Ur Random Microalbumin (1.3-20.0) mg/L Microalb/Creat Ratio (0-30) mg/g 08/28/18 08/28/18 08/28/18 Range/Units 19:14 20:09 21:04 Sodium (136-145) mEq/L Potassium (3.5-5.1) mEq/L Chloride (98-107) mEq/L Carbon Dioxide (21-32) mEq/L Anion Gap (5-15) BUN (7-18) mg/dL Creatinine (0.7-1.3) mg/dL Est Cr Clr Drug Dosing mL/min Estimated GFR (MDRD) (>60) mL/min BUN/Creatinine Ratio (14-18) Glucose (74-106) mg/dL POC Glucose 108 H 96 146 H (70-105) mg/dL Hemoglobin A1c (4.50-6.20) % Calcium (8.5-10.1) mg/dL Magnesium (1.8-2.4) mg/dl Triglycerides (<150) mg/dL Cholesterol (<200) mg/dL LDL Cholesterol Direct (<100) mg/dL HDL Cholesterol (40-59) mg/dL Vitamin D 25-Hydroxy (30.0-100.0) ng/ml Free T4 (0.76-1.46) ng/dL TSH 3rd Generation (0.358-3.74) uIU/mL Ur Random Creatinine (30.0-125.0) mg/dL Ur Random Microalbumin (1.3-20.0) mg/L Microalb/Creat Ratio (0-30) mg/g 08/28/18 Range/Units 21:15 Sodium 137 (136-145) mEq/L Potassium 2.6 L (3.5-5.1) mEq/L Chloride 105 (98-107) mEq/L Carbon Dioxide 16 L (21-32) mEq/L Anion Gap 18.6 H (5-15) BUN 12 (7-18) mg/dL Creatinine 1.0 (0.7-1.3) mg/dL Est Cr Clr Drug Dosing 106.79 mL/min Estimated GFR (MDRD) > 60 (>60) mL/min BUN/Creatinine Ratio 12.0 L (14-18) Glucose 143 H (74-106) mg/dL POC Glucose (70-105) mg/dL Hemoglobin A1c (4.50-6.20) % Calcium 8.9 (8.5-10.1) mg/dL Magnesium (1.8-2.4) mg/dl Triglycerides (<150) mg/dL Cholesterol (<200) mg/dL LDL Cholesterol Direct (<100) mg/dL HDL Cholesterol (40-59) mg/dL Vitamin D 25-Hydroxy (30.0-100.0) ng/ml Free T4 (0.76-1.46) ng/dL TSH 3rd Generation (0.358-3.74) uIU/mL Ur Random Creatinine (30.0-125.0) mg/dL Ur Random Microalbumin (1.3-20.0) mg/L Microalb/Creat Ratio (0-30) mg/g Med Orders - Current: Current Medications Acetaminophen (Tylenol) 650 mg PO Q4H PRN PRN Reason: Pain (Mild 1-3)/fever Hydrocodone Bitart/Acetaminophen (Leroy 325-5 Mg) 1 tab PO Q4H PRN PRN Reason: Pain (moderate 4-6) Albuterol/Ipratropium (Duoneb 3.0-0.5 Mg/3 Ml) 3 ml NEB Q4H PRN PRN Reason: Shortness Of Breath/wheezing Bisacodyl (Dulcolax) 5 mg PO DAILY PRN PRN Reason: Constipation Cholecalciferol (Vitamin D3) 5,000 unit PO DAILY JOEL Last Admin: 08/28/18 20:11 Dose: 5,000 unit Docusate Sodium (Colace) 100 mg PO BID PRN PRN Reason: Constipation Hydralazine HCl (Apresoline) 20 mg IVPUSH Q4H PRN PRN Reason: Hypertension Last Admin: 08/28/18 06:43 Dose: 20 mg Hydromorphone HCl (Dilaudid) 0.25 mg IVPUSH Q2H PRN PRN Reason: Pain (severe 7-10) Promethazine HCl 6.25 mg/ (Sodium Chloride) 50.25 mls @ 100 mls/hr IV Q6H PRN PRN Reason: Nausea/Vomiting Insulin Human Regular 100 unit (/ Sodium Chloride) 100 mls @ 3 mls/hr IV TITRATE JOEL; Protocol Last Titration: 08/28/18 06:52 Dose: 10 units/hr, 10 mls/hr Dextrose/Sodium Chloride (Dextrose 5%-Normal Saline) 1,000 mls @ 175 mls/hr IV ASDIRECTED JOEL Last Admin: 08/28/18 20:47 Dose: 175 mls/hr Insulin Glargine (Lantus) 25 unit SUBCUT BIDAC JOEL Lisinopril (Prinivil) 5 mg PO DAILY JOEL Lorazepam (Ativan) 2 mg IVPUSH Q4H PRN PRN Reason: Seizures Lorazepam (Ativan) 1 mg IV Q6H PRN PRN Reason: Anxiety Magnesium Sulfate (Pharmacy To Dose - Magnesium Replacement) 0 dose .XX ASDIRECTED PRN PRN Reason: RX TO WATCH MAG LEVELS Metoprolol Tartrate (Lopressor) 5 mg IVPUSH Q4H PRN PRN Reason: Tachycardia Ondansetron HCl (Zofran) 4 mg IV Q6H PRN PRN Reason: Nausea/Vomiting Polyethylene Glycol (Miralax) 17 gm PO DAILY PRN PRN Reason: Constipation Potassium Chloride (Pharmacy To Dose - Potassium Replacement) 0 dose .XX ASDIRECTED PRN PRN Reason: RX TO WATCH K LEVELS Potassium Chloride (Klor-Con M20) 40 meq PO ONETIME ONE Stop: 08/28/18 22:02 Senna/Docusate Sodium (Senna Plus) 1 tab PO BID PRN PRN Reason: Constipation Sodium Chloride (Saline Flush) 10 ml FLUSH ASDIRECTED PRN PRN Reason: Keep Vein Open Last Admin: 08/27/18 17:40 Dose: 10 ml Temazepam (Restoril) 15 mg PO BEDTIME PRN PRN Reason: Sleep Discontinued Medications Sodium Chloride (Normal Saline) 1,000 mls @ 1,000 mls/hr IV .BOLUS JOEL Last Admin: 08/27/18 17:51 Dose: 1,000 mls/hr Lactated Ringer's (Ringers, Lactated) 1,000 mls @ 1,000 mls/hr IV .BOLUS ONE Stop: 08/27/18 19:45 Last Admin: 08/27/18 18:55 Dose: 1,000 mls/hr Lactated Ringer's (Ringers, Lactated) 1,000 mls @ 1,000 mls/hr IV .BOLUS ONE Stop: 08/27/18 20:02 Last Admin: 08/27/18 20:00 Dose: 1,000 mls/hr Lactated Ringer's (Ringers, Lactated) 1,000 mls @ 999 mls/hr IV BOLUS ONE Stop: 08/27/18 22:54 Last Admin: 08/27/18 22:10 Dose: 999 mls/hr Magnesium Sulfate 2 gm/ Premix 50 mls @ 25 mls/hr IV ONETIME ONE Stop: 08/28/18 11:59 Last Admin: 08/28/18 12:50 Dose: 25 mls/hr Lisinopril (Prinivil) 5 mg PO ONETIME ONE Stop: 08/28/18 09:29 Last Admin: 08/28/18 10:39 Dose: 5 mg Potassium Chloride (Klor-Con M20) 40 meq PO Q4H JOEL Stop: 08/28/18 01:46 Last Admin: 08/28/18 00:46 Dose: 40 meq Potassium Chloride (Klor-Con M20) 60 meq PO ONETIME ONE Stop: 08/27/18 21:47 Last Admin: 08/27/18 21:54 Dose: Not Given Potassium Chloride (Klor-Con M20) 60 meq PO ONETIME ONE Stop: 08/28/18 10:01 Last Admin: 08/28/18 10:39 Dose: 60 meq Potassium Chloride (Klor-Con M20) 60 meq PO ONETIME ONE Stop: 08/28/18 19:21 Last Admin: 08/28/18 20:10 Dose: 60 meq - Exam General: Alert, Oriented, Cooperative, Other (Obese) HEENT: Pupils Equal, Pupils Reactive, EOMI, Mucous Membr. Moist/[place] Neck: Supple, Trachea Midline Lungs: Clear to Auscultation, Normal Respiratory Effort Cardiovascular: Regular Rate, Regular Rhythm GI/Abdominal Exam: Normal Bowel Sounds, Soft, Non-Tender, No Organomegaly, No Distention, No Abnormal Bruit (Male) Exam: Deferred Back Exam: Normal Inspection, Full Range of Motion Extremities: Normal Inspection, Normal Range of Motion, Non-Tender, No Pedal Edema, Normal Capillary Refill Peripheral Pulses: 3+: Dorsalis Pedis (L), Dorsalis Pedis (R) Skin: Warm, Dry, Intact Neurological: No New Focal Deficit, Normal Gait Psy/Mental Status: Alert, Normal Affect, Normal Mood - Problem List Review Problem List Initiated/Reviewed/Updated: Yes - My Orders Last 24 Hours: My Active Orders 08/27/18 21:38 Height and Weight [RC] DAILY Oxygen Therapy [RC] PRN Up ad Lili [RC] ASDIRECTED VTE/DVT Education [RC] Vital Signs [RC] Q4HR Consult to Case Management/Film Painter [CONS] Routine Consult to Diabetic Nurse Specialist [CONS] Routine Consult to Gear Inspector [CONS] Routine Acetaminophen [Tylenol] 650 mg PO Q4H PRN Acetaminophen/HYDROcodone [Leroy 325-5 MG] 1 tab PO Q4H PRN Albuterol/Ipratropium [DuoNeb 3.0-0.5 MG/3 ML] 3 ml NEB Q4H PRN Bisacodyl [Dulcolax] 5 mg PO DAILY PRN Docusate Sodium [Colace] 100 mg PO BID PRN Docusate Sodium/Sennosides [Senna Plus] 1 tab PO BID PRN HYDROmorphone [Dilaudid] 0.25 mg IVPUSH Q2H PRN LORazepam [Ativan] 1 mg IV Q6H PRN LORazepam [Ativan] 2 mg IVPUSH Q4H PRN Metoprolol Tartrate [Lopressor] 5 mg IVPUSH Q4H PRN Ondansetron [Zofran] 4 mg IV Q6H PRN Polyethylene Glycol 3350 [MiraLAX] 17 gm PO DAILY PRN Promethazine [Phenergan] 6.25 mg Sodium Chloride 0.9% [Normal Saline] 50 ml IV Q6H Temazepam [Restoril] 15 mg PO BEDTIME PRN hydrALAZINE [Apresoline] 20 mg IVPUSH Q4H PRN Resuscitation Status Routine 08/27/18 21:39 Cardiac Monitoring [RC] CONTINUOUS Intake and Output [RC] 04,16 Sequential Compression Device [OM.PC] Per Unit Routine 08/27/18 21:40 Antiembolic Devices [RC] QSHIFT 08/27/18 21:42 RT Aerosol Therapy [RC] ASDIRECTED 08/27/18 21:45 Pharmacy to Dose - Magnesium R [Pharmacy to Dose - Magnesium Replacement] 0 dose .XX ASDIRECTED PRN Pharmacy to Dose - Potassium R [Pharmacy to Dose - Potassium Replacement] 0 dose .XX ASDIRECTED PRN 08/28/18 00:45 Dextrose 5%-0.9% NaCl [Dextrose 5%-Normal Saline] 1,000 ml IV ASDIRECTED 08/28/18 21:00 Cholecalciferol (Vitamin D3) [Vitamin D3] 5,000 unit PO DAILY 08/28/18 22:01 Potassium Chloride [Klor-Con M20] 40 meq PO ONETIME ONE 08/29/18 05:11 MAGNESIUM [CHEM] AM 08/29/18 09:00 Lisinopril [Prinivil] 5 mg PO DAILY 08/29/18 22:00 Insulin Glarg,Human.Rec.Analog [LantUS] 25 unit SUBCUT BIDAC 08/30/18 05:11 MAGNESIUM [CHEM] AM 08/31/18 05:11 MAGNESIUM [CHEM] AM 09/01/18 05:11 MAGNESIUM [CHEM] AM - Plan Plan:: Assessment/Plan: Acute: Diabetic Ketoacidosis - Ketones 10.34 and BS in the 300s - He carries no hx/o diabetes - Reports polydipsia and polyuria - DKA protocol (my own) w/ Aggressive IV hydration - Received NS/LR for volume resuscitation - NPO until AG resolves - Diabetic Education and Dietary Consult New Onset of Diabetes - 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 - Obese and in his late 20s - Need to confirm with: GADA, ICA, ZnT8 and IA-2 (refer to see Endocrinology) - BS in the 300s; now in the 200s - A1C is 11.30 - Micro-albuminemia 313.7 (start low dose ACEI) for renal protection - Parents were non diabetic - Insulin regimen (LA and SA) Class I Obese - BMI 33 - Advised LSM - Dietary consult for weight management Hypertension - 2/2 Volume Expansion from fluid resuscitation - No need for urgent treatment - Monitor Hypokalemia - 2/2 Insulin Use - K is a co-transporter - Continue to replete Vitamine Deficiency - Vitamin D of 18.00 (low) - Oral Vitamin D supplement start tonight Plan: He is clinically stable Continue Insulin drip w/ D5w Serial BMP Q4H until AG resolves; if not at at least pretty close to upper limit of normal Routine AM labs Monitor E-lytes Abnormality Thyroid Panel-normal Lipid Panel: low HLD but normal LDL (no intervention but LSM) SW/CM for d/c planning Additional orders as above Code status:1 With patient's permission, updated mother at bedside about his lab results and treatment plan. Possible discharge in AM
[2018-08-28] MEDS ORDERED: Insulin Glarg,Human.Rec.Analog 100 UNIT/ML ML SUBCUT SCH (22:04)
--- NOTE | 2018-08-28 22:08 | PCM.SN ---
- Free Text/Narrative Note: Patient seen and examined at bedside. He looks clinically stable. His last AG remains at 18 despite increased in insulin rate. We will go ahead and try to feed him with crackers and soda. If he is able to tolerate it then proceed with ADA diet. Insulin drip will be discontinued half an hour later then start SubQ insulin regimen.
[2018-08-28] MEDS: Insulin Glarg,Human.Rec.Analog 100 UNIT/ML ML SUBCUT SCH (22:43)
[2018-08-29] MEDS ORDERED: Magnesium Sulfate/Water 4 GM in Premix Bag 1 BAG IV ONE (07:30)
[2018-08-29] MEDS ORDERED: Potassium Chloride 10 MEQ in Premix Bag 1 BAG IV SCH (07:30)
[2018-08-29] MEDS: Insulin Lispro 100 UNIT/ML 10 ML VIAL SUBCUT SCH ×3 (07:54→16:13)
[2018-08-29] MEDS: Cholecalciferol (Vitamin D3) 5,000 UNIT Tab PO SCH (08:02)
[2018-08-29] MEDS: Insulin Glarg,Human.Rec.Analog 100 UNIT/ML ML SUBCUT SCH (08:02)
[2018-08-29] MEDS ORDERED: Lisinopril 5 MG Tab PO SCH (09:00)
[2018-08-29] MEDS ORDERED: Insulin Glarg,Human.Rec.Analog 100 UNIT/ML ML SUBCUT ONE (09:00)
[2018-08-29] MEDS ORDERED: Insulin Glarg,Human.Rec.Analog 100 UNIT/ML ML SUBCUT SCH ×2 (09:00→22:00)
[2018-08-29] MEDS ORDERED: Potassium Chloride 20 MEQ Tab.ER PO ONE ×2 (10:00→18:00)
--- NOTE | 2018-08-29 16:16 | PCM.DCSUM1 ---
Discharge Summary - Hospital Course HPI Initial Comments: This is a 28 yo young white male with no significant past medical hx/o who was initially seen in [facility] "flu-like" symptoms that have been going on for a couple of weeks now. Her c/o is associated with increased fluid intake, urination, abdominal pain, nausea and vomiting. She was subsequently diagnosed with new onset of diabetes with a BS of 359 and an A1C level of 13.5. His initial work up in ED shows a CBC remarkable for WBC of 13.15, MCHC of 35.7 , Platelet of 402, Neutrophils of 77.3%, Lymphocytes of 16.5% and Eosinophils of 0.1%. His ABG shows a pH of 7.18, pCO2 of 14.3, PO2 of 103, HCO3 of 5.1, O2 Sat of 97.7, on RA. His chemistry is significant for Na of 129, Cl of 91, AG of 33.6, BUN of 20, Cr of 1.4, BS of 340, AST of 46, ALT of 92 and Total Protein of 8.7. His ketones level is 10.34. Patient is being admitted for medical treatment of DKA. Diagnosis: Stroke: No Modified [place] Scale: No Symptoms at All Modified [place]o Scale Score: 0 - Discharge Data Discharge Date: 08/29/18 Discharge Disposition: Home, Self-Care 01 Condition: Good - Discharge Diagnosis/Problem(s) (1) Diabetes mellitus, new onset SNOMED Code(s): 367824944, 365064933 ICD Code: E11.9 - TYPE 2 DIABETES MELLITUS WITHOUT COMPLICATIONS Status: Acute Problem Details: - Probable SUSAN - Obese, late onset; diagnosed with DKA - Refer to Endocrinology after discharge (2) Obesity (BMI 30.0-34.9) SNOMED Code(s): 280500486992617 ICD Code: E66.9 - OBESITY, UNSPECIFIED Status: Acute (3) Vitamin D deficiency SNOMED Code(s): 14773763 ICD Code: E55.9 - VITAMIN D DEFICIENCY, UNSPECIFIED Status: Acute (4) Diabetic ketoacidosis SNOMED Code(s): 762574382, 832325116 ICD Code: E13.10 - OTH DIABETES MELLITUS WITH KETOACIDOSIS WITHOUT COMA Status: Resolved Qualifiers: Diabetes mellitus type: other specified (including TRAE) Diabetes mellitus complication detail: without coma Qualified Code(s): E13.10 - Other specified diabetes mellitus with ketoacidosis without coma - Patient Summary/Data Operative Procedure(s) Performed: None Complications: None Consults: Consultations 08/27/18 21:38 Consult to Case Management/Property Insurance Agent [CONS] Routine Consult to Diabetic Nurse Specialist [CONS] Routine Consult to Order Runner [CONS] Routine Labs Pending at D/C: None Recommended Follow-up Testing/Procedures: None Planned Operative Procedure(s) after DC: None - Patient Instructions Diet: Diabetic Diet, Weight Loss Diet Activity: As Tolerated Driving: May Drive Today Showering/Bathing: May Shower Notify Provider of: Fever, Increased Pain, Swelling and Redness, Drainage, Nausea and/or Vomiting Other/Special Instructions: - Please take all new medications as directed. - Recommend you see an endoclinologist for further eval after discharge. - Make sure you carry sugar tablets with you. - Make sure you check your sugar each meal and at bedtime. Show log on follow up appointment with PCP. - Call or follow up with your PCP for any questions or concerns after discharge. - Follow up with your PCP in 1 week. - Come back or seek immediate care should your symptoms persist or get worse - Discharge Plan *PRESCRIPTION DRUG MONITORING PROGRAM REVIEWED*: Not Applicable *COPY OF PRESCRIPTION DRUG MONITORING REPORT IN PATIENT BRII: Not Applicable Prescriptions/Med Rec: Cholecalciferol (Vitamin D3) [Vitamin D3] 5,000 unit PO BEDTIME #30 tablet Insulin Glarg,Human.Rec.Analog [Lantus] 25 unit SQ BID #1 unit Insulin Lispro [Humalog] See Protocol SUBCUT QIDACANDBED PRN #1 ml PRN Reason: Hyperglycemia/DM Lisinopril 10 mg PO DAILY #30 tablet Home Medications: Home Meds Cholecalciferol (Vitamin D3) [Vitamin D3] 5,000 unit PO BEDTIME #30 tablet 08/29 [Rx] Insulin Glarg,Human.Rec.Analog [Lantus] 25 unit SQ BID #1 unit 08/29/18 [Rx] Insulin Lispro [Humalog] See Protocol SUBCUT QIDACANDBED PRN #1 ml 08/29/18 [Rx] Lisinopril 10 mg PO DAILY #30 tablet 08/29/18 [Rx] Patient Handouts: Insulin Storage and Care, Diabetes Mellitus and Sick Day Management, Type 1 Diabetes Mellitus, Self Care, Adult, [id number], How to Avoid Diabetes Mellitus Problems Referrals: Loni Austin CONSULTING NURSE [Primary Care Provider] - - Discharge Summary/Plan Comment DC Time >30 min.: No Discharge Summary/Plan Comment: Discharge to Home - General Info Date of Service: 08/29/18 Admission Dx/Problem (Free Text: Admission Diagnosis/Problem Admission Diagnosis/Problem Diabetic ketoacidosis Subjective Update: Follow Up Functional Status: Reports: Pain Controlled, Tolerating Diet, Ambulating, Urinating. Denies: New Symptoms - Review of Systems General: Denies: Fever, Weakness, Fatigue HEENT: Reports: No Symptoms Pulmonary: Denies: Shortness of Breath Cardiovascular: Denies: Chest Pain, Dyspnea on Exertion, Orthopnea, Edema, Lightheadedness Gastrointestinal: Denies: Abdominal Pain, Decreased Appetite, Vomiting Genitourinary: Reports: No Symptoms Musculoskeletal: Reports: No Symptoms Skin: Denies: Cyanosis, Mottled, Pallor, Diaphoresis, Bruising, Pruritis Neurological: Denies: Confusion, Difficulty Walking, Weakness, Gait Disturbance Psychiatric: Denies: Confusion, Mood Lability, Anxiety, Agitation, Hallucinations - Patient Data Vitals - Most Recent: Last Vital Signs Temp 36.7 C 08/29/18 11:32 Pulse 92 08/29/18 11:32 Resp 16 08/29/18 11:32 BP 155/83 H 08/29/18 11:32 Pulse Ox 100 08/29/18 11:32 Weight - Most Recent: 98.339 kg I&O - Last 24 hours: Intake & Output 08/29/18 08/29/18 08/29/18 06:59 14:59 22:59 Intake Total 1693 900 Balance 1693 900 Lab Results - Last 24 hrs: Laboratory Results - last 24 hr 08/28/18 08/28/18 08/28/18 Range/Units 17:11 17:45 19:14 Sodium 139 (136-145) mEq/L Potassium 2.6 L (3.5-5.1) mEq/L Chloride 107 (98-107) mEq/L Carbon Dioxide 16 L (21-32) mEq/L Anion Gap 18.6 H (5-15) BUN 13 (7-18) mg/dL Creatinine 1.1 (0.7-1.3) mg/dL Est Cr Clr Drug Dosing 97.09 mL/min Estimated GFR (MDRD) > 60 (>60) mL/min BUN/Creatinine Ratio 11.8 L (14-18) Glucose 141 H (74-106) mg/dL POC Glucose 161 H 108 H (70-105) mg/dL Calcium 8.7 (8.5-10.1) mg/dL Magnesium (1.8-2.4) mg/dl 08/28/18 08/28/18 08/28/18 Range/Units 20:09 21:04 21:15 Sodium 137 (136-145) mEq/L Potassium 2.6 L (3.5-5.1) mEq/L Chloride 105 (98-107) mEq/L Carbon Dioxide 16 L (21-32) mEq/L Anion Gap 18.6 H (5-15) BUN 12 (7-18) mg/dL Creatinine 1.0 (0.7-1.3) mg/dL Est Cr Clr Drug Dosing 106.79 mL/min Estimated GFR (MDRD) > 60 (>60) mL/min BUN/Creatinine Ratio 12.0 L (14-18) Glucose 143 H (74-106) mg/dL POC Glucose 96 146 H (70-105) mg/dL Calcium 8.9 (8.5-10.1) mg/dL Magnesium (1.8-2.4) mg/dl 08/28/18 08/29/18 08/29/18 Range/Units 22:42 05:10 06:45 Sodium (136-145) mEq/L Potassium (3.5-5.1) mEq/L Chloride (98-107) mEq/L Carbon Dioxide (21-32) mEq/L Anion Gap (5-15) BUN (7-18) mg/dL Creatinine (0.7-1.3) mg/dL Est Cr Clr Drug Dosing mL/min Estimated GFR (MDRD) (>60) mL/min BUN/Creatinine Ratio (14-18) Glucose (74-106) mg/dL POC Glucose 311 H 265 H (70-105) mg/dL Calcium (8.5-10.1) mg/dL Magnesium 1.6 L (1.8-2.4) mg/dl 02/21/19 02/21/19 02/21/19 Range/Units 08:00 12:43 16:07 Sodium 137 (136-145) mEq/L Potassium 3.5 (3.5-5.1) mEq/L Chloride 104 (98-107) mEq/L Carbon Dioxide 15 L (21-32) mEq/L Anion Gap 21.5 H (5-15) BUN 12 (7-18) mg/dL Creatinine 1.0 (0.7-1.3) mg/dL Est Cr Clr Drug Dosing 106.40 mL/min Estimated GFR (MDRD) > 60 (>60) mL/min BUN/Creatinine Ratio 12.0 L (14-18) Glucose 249 H (74-106) mg/dL POC Glucose 281 H 301 H (70-105) mg/dL Calcium 9.0 (8.5-10.1) mg/dL Magnesium (1.8-2.4) mg/dl Med Orders - Current: Current Medications Acetaminophen (Tylenol) 650 mg PO Q4H PRN PRN Reason: Pain (Mild 1-3)/fever Hydrocodone Bitart/Acetaminophen ([place] 325-5 Mg) 1 tab PO Q4H PRN PRN Reason: Pain (moderate 4-6) Albuterol/Ipratropium (Duoneb 3.0-0.5 Mg/3 Ml) 3 ml NEB Q4H PRN PRN Reason: Shortness Of Breath/wheezing Bisacodyl (Dulcolax) 5 mg PO DAILY PRN PRN Reason: Constipation Cholecalciferol (Vitamin D3) 5,000 unit PO DAILY JOEL Last Admin: 08/29/18 08:02 Dose: 5,000 unit Docusate Sodium (Colace) 100 mg PO BID PRN PRN Reason: Constipation Last Admin: 08/29/18 09:21 Dose: 100 mg Hydralazine HCl (Apresoline) 20 mg IVPUSH Q4H PRN PRN Reason: Hypertension Last Admin: 08/28/18 06:43 Dose: 20 mg Hydromorphone HCl (Dilaudid) 0.25 mg IVPUSH Q2H PRN PRN Reason: Pain (severe 7-10) Promethazine HCl 6.25 mg/ (Sodium Chloride) 50.25 mls @ 100 mls/hr IV Q6H PRN PRN Reason: Nausea/Vomiting Insulin Glargine (Lantus) 30 unit SUBCUT BID [facility] Last Admin: 08/29/18 09:21 Dose: Not Given Insulin Human Lispro (Humalog) 0 unit SUBCUT QIDACANDBED [facility]; Protocol Last Admin: 08/29/18 16:13 Dose: 12 units Lisinopril (Prinivil) 5 mg PO DAILY [facility] Last Admin: 08/29/18 08:00 Dose: 5 mg Lorazepam (Ativan) 2 mg IVPUSH Q4H PRN PRN Reason: Seizures Lorazepam (Ativan) 1 mg IV Q6H PRN PRN Reason: Anxiety Magnesium Sulfate (Pharmacy To Dose - Magnesium Replacement) 0 dose .XX ASDIRECTED PRN PRN Reason: RX TO WATCH MAG LEVELS Metoprolol Tartrate (Lopressor) 5 mg IVPUSH Q4H PRN PRN Reason: Tachycardia Ondansetron HCl (Zofran) 4 mg IV Q6H PRN PRN Reason: Nausea/Vomiting Polyethylene Glycol (Miralax) 17 gm PO DAILY PRN PRN Reason: Constipation Potassium Chloride (Pharmacy To Dose - Potassium Replacement) 0 dose .XX ASDIRECTED PRN PRN Reason: RX TO WATCH K LEVELS Senna/Docusate Sodium (Senna Plus) 1 tab PO BID PRN PRN Reason: Constipation Sodium Chloride (Saline Flush) 10 ml FLUSH ASDIRECTED PRN PRN Reason: Keep Vein Open Last Admin: 08/27/18 17:40 Dose: 10 ml Temazepam (Restoril) 15 mg PO BEDTIME PRN PRN Reason: Sleep Discontinued Medications Sodium Chloride (Normal Saline) 1,000 mls @ 1,000 mls/hr IV .BOLUS [facility] Last Admin: 08/27/18 17:51 Dose: 1,000 mls/hr Lactated Ringer's (Ringers, Lactated) 1,000 mls @ 1,000 mls/hr IV .BOLUS ONE Stop: 08/27/18 19:45 Last Admin: 08/27/18 18:55 Dose: 1,000 mls/hr Lactated Ringer's (Ringers, Lactated) 1,000 mls @ 1,000 mls/hr IV .BOLUS ONE Stop: 08/27/18 20:02 Last Admin: 08/27/18 20:00 Dose: 1,000 mls/hr Lactated Ringer's (Ringers, Lactated) 1,000 mls @ 999 mls/hr IV BOLUS ONE Stop: 08/27/18 22:54 Last Admin: 08/27/18 22:10 Dose: 999 mls/hr Insulin Human Regular 100 unit (/ Sodium Chloride) 100 mls @ 3 mls/hr IV TITRATE [facility]; Protocol Last Titration: 08/28/18 22:00 Dose: Infused Dextrose/Sodium Chloride (Dextrose 5%-Normal Saline) 1,000 mls @ 175 mls/hr IV ASDIRECTED JOEL Last Admin: 08/28/18 20:47 Dose: 175 mls/hr Magnesium Sulfate 2 gm/ Premix 50 mls @ 25 mls/hr IV ONETIME ONE Stop: 08/28/18 11:59 Last Admin: 08/28/18 12:50 Dose: 25 mls/hr Magnesium Sulfate 4 gm/ Premix 100 mls @ 25 mls/hr IV ONETIME ONE Stop: 08/29/18 11:29 Last Admin: 08/29/18 07:54 Dose: 25 mls/hr Insulin Glargine (Lantus) 25 unit SUBCUT BIDAC JOEL Insulin Glargine (Lantus) 25 unit SUBCUT BIDAC [facility] Last Admin: 08/28/18 22:45 Dose: Not Given Insulin Glargine (Lantus) 25 unit SUBCUT BID JOEL Last Admin: 08/29/18 08:02 Dose: 25 unit Insulin Glargine (Lantus) 5 unit SUBCUT NOW ONE Stop: 08/29/18 09:01 Last Admin: 08/29/18 09:20 Dose: 5 unit Lisinopril (Prinivil) 5 mg PO ONETIME ONE Stop: 08/28/18 09:29 Last Admin: 08/28/18 10:39 Dose: 5 mg Potassium Chloride (Klor-Con M20) 40 meq PO Q4H JOEL Stop: 08/28/18 01:46 Last Admin: 08/28/18 00:46 Dose: 40 meq Potassium Chloride (Klor-Con M20) 60 meq PO ONETIME ONE Stop: 08/27/18 21:47 Last Admin: 08/27/18 21:54 Dose: Not Given Potassium Chloride (Klor-Con M20) 60 meq PO ONETIME ONE Stop: 08/28/18 10:01 Last Admin: 08/28/18 10:39 Dose: 60 meq Potassium Chloride (Klor-Con M20) 60 meq PO ONETIME ONE Stop: 08/28/18 19:21 Last Admin: 08/28/18 20:10 Dose: 60 meq Potassium Chloride (Klor-Con M20) 40 meq PO ONETIME ONE Stop: 08/28/18 22:02 Last Admin: 08/28/18 22:41 Dose: 40 meq Potassium Chloride (Klor-Con M20) 40 meq PO ONETIME ONE Stop: 08/29/18 10:01 Last Admin: 08/29/18 09:28 Dose: 40 meq - Exam General: Reports: Alert, Oriented, Cooperative, No Acute Distress, Other (Obese) HEENT: Reports: Pupils Equal, Pupils Reactive, EOMI, Mucous Membr. Moist/[place] Neck: Reports: Supple, Trachea Midline, No JVD, No Thyromegaly, Lymphadenopathy Lungs: Reports: Clear to Auscultation, Normal Respiratory Effort Cardiovascular: Reports: Regular Rate, Regular Rhythm GI/Abdominal Exam: Normal Bowel Sounds, Soft, Non-Tender, No Organomegaly, No Distention, No Abnormal Bruit, No Mass, Other (Obese) (Male) Exam: Deferred Rectal (Males) Exam: Deferred Back Exam: Reports: Normal Inspection, Full Range of Motion Extremities: Normal Inspection, Normal Range of Motion, Non-Tender, No Pedal Edema, Normal Capillary Refill Skin: Reports: Warm, Dry, Intact Neurological: Reports: No New Focal Deficit, Normal Gait Psy/Mental Status: Reports: Alert, Normal Affect, Normal Mood
== END 2018-08-29 16:00 | disposition home or self-care (01) | DRG 420 ==
LOC: JD.ED 17:25 → JD.ICU 19:49
PROVIDERS: ADMIT Internal Medicine; ATTEND Internal Medicine
DX: E13.10 Other specified diabetes mellitus with ketoacidosis without coma (principal); E55.9 Vitamin D deficiency, unspecified; E66.9 Obesity, unspecified; Z68.33 Body mass index [BMI] 33.0-33.9, adult; I10 Essential (primary) hypertension; E87.6 Hypokalemia; T38.3X5A Adverse effect of insulin and oral hypoglycemic [antidiabetic] drugs, initial encounter
CPT/HCPCS: 36415; 36600; 80048; 80053; 80061; 82009; 82043; 82306; 82803; 82962; 83036; 83735; 83930; 84439; 84443; 85025; 93010; 96360; 99284; 99285-25; A9270-GY; J0360; J1815-GY; J3475; J7030; J7040; J7042; J7120